=== PATIENT | female | born 1990 | race African-American/Black ===

== ENCOUNTER 2020-06-15 08:39 | Emergency (ER) | payer OTHER | END 2020-06-15 10:01 | disposition left against medical advice (07) | LOC: CSHERS 08:39 | DX: Z53.21 Procedure and treatment not carried out due to patient leaving prior to being seen by health care provider (principal) ==

== ENCOUNTER 2020-06-24 15:28 | Emergency (ER) | payer OTHER | END 2020-06-24 16:58 | disposition left against medical advice (07) | LOC: CSHERS 15:28 | DX: Z53.21 Procedure and treatment not carried out due to patient leaving prior to being seen by health care provider (principal) ==